=== PATIENT | female | born 1945 | race American Indian/Alaskan Native ===

== ENCOUNTER 2017-08-29 10:13 | Outpatient (CLI) | payer OTHER ==
[~2017-08-29 10:13] MED LIST: LOTREL 5-10 MG1 CAP PO; OMEPRAZOLE40 MG PO
== END 2017-08-29 17:00 | disposition home or self-care (01) ==
LOC: MAMO-SONO 10:13
DX: Z12.31 Encounter for screening mammogram for malignant neoplasm of breast (principal); Z87.898 Personal history of other specified conditions; N60.11 Diffuse cystic mastopathy of right breast

== ENCOUNTER 2019-01-05 08:51 | Outpatient (CLI) | payer OTHER | END 2019-01-05 08:56 | disposition home or self-care (01) | LOC: MAMO-SONO 08:51 | DX: N60.11 Diffuse cystic mastopathy of right breast (principal); Z12.31 Encounter for screening mammogram for malignant neoplasm of breast; Z87.898 Personal history of other specified conditions ==